=== PATIENT | female | born 1990 | race Two or more races ===

== ENCOUNTER 2016-07-09 23:04 | Emergency (ER) | payer BC ==
[2016-07-09 23:47] VITALS: BP 117/80
--- NOTE | 2016-07-09 23:53 | ER Document Report ---
ED Medical Screen (RME) - General Stated Complaint: LOWER ABDOMINAL PAIN Time seen by provider: 23:52 Mode of Arrival: Ambulatory Information source: Patient Notes: 26-year-old female presents to ED for. Umbilical and right abdominal pain for about a month worse today. She states she's had some nausea since lunchtime today no vomiting or diarrhea no fever. Last menstrual period was 06/17/2016. I have greeted and performed a rapid initial assessment of this patient. A comprehensive ED assessment and evaluation of the patient, analysis of test results and completion of medical decision making process will be conducted by an additional ED providers. Physical Exam - Vital signs Vitals: Temp Pulse Resp BP Pulse Ox 97.9 F 118 H 14 117/80 99 07/09/16 23:44 07/09/16 23:44 07/09/16 23:44 07/09/16 23:44 07/09/16 23:44 Course - Vital Signs Vital signs: Temp Pulse Resp BP Pulse Ox 97.9 F 118 H 14 117/80 99 07/09/16 23:44 07/09/16 23:44 07/09/16 23:44 07/09/16 23:44 07/09/16 23:44
[2016-07-10 00:29] LABS: APPEARANCE,URINE CLOUDY; BILIRUBIN,URINE NEGATIVE (NEGATIVE); GLUCOSE, URINE NEGATIVE (NEGATIVE); KETONES,URINE NEGATIVE (NEGATIVE); LEUKOCYTE ESTERASE,URINE LARGE (NEGATIVE); NITRITE,URINE POSITIVE (NEGATIVE); PROTEIN,URINE 100 mg/dL (NEGATIVE); URINE SPECIFIC GRAVITY 1.018; UROBILINOGEN,URINE NEGATIVE mg/dL (<2.0)
== END 2016-07-10 01:00 | disposition left against medical advice (07) ==
LOC: ER 23:04
DX: R10.33 Periumbilical pain (principal); R11.0 Nausea; Z53.20 Procedure and treatment not carried out because of patient's decision for unspecified reasons
CPT/HCPCS: 81001; 81025; 87086; 87088; 87186; 99281